=== PATIENT | male | born 1950 | race Caucasian/White ===

== ENCOUNTER 2020-07-31 13:58 | Inpatient (IN) ==
[2020-07-31] MEDS ORDERED: NS 0.9% 1000 ml BAG 1,000 ML IV ONE (13:59)
[2020-07-31] MEDS ORDERED: Ondansetron 4 mg VIAL 2 MG/ML 2 ml VIAL IV ONE ×2 (13:59→19:40)
[2020-07-31] MEDS ORDERED: Iodixanol (CONTRAST) 320 MG/ML 100 ML SDV IV ONE (14:15)
[2020-07-31 14:52] LABS: ABS Basophils 0.1 10^3/ul (0-0.2); ABS Eosinophils 0.1 10^3/ul (0-0.6); ABS Lymphocytes 0.8 10^3/ul (1.0-4.8); ABS Monocytes 0.5 10^3/ul (0-0.8); ABS Neutrophils 8.4 10^3/ul (1.5-7.7); Eosinophil % 0.6 %; Hematocrit 34 % (42-52); Hemoglobin 11.9 g/dL (14.0-18.0); Lymphocyte % 7.7 %; Mean Corpuscular HGB Conc 35 g/dL (31-36); Mean Corpuscular Hemoglobin 30 pg (27-31); Mean Corpuscular Volume 87 fL (80-94); Mean Platelet Volume 6.9 fL (7.4-10.4); Platelet Count 332 10^3/uL (150-450); Red Blood Count 3.95 10^6 /uL (4.18-5.48); Red Cell Distribution Width 13 % (10-15); White Blood Count 9.8 10^3/uL (3.5-10.8)
[2020-07-31 15:00] LABS: Activated Partial Thrombo Time 16.6 seconds (26.0-38.0); INR 1.01 (0.82-1.09)
[2020-07-31 15:11] LABS: Troponin I 0.01 ng/mL (<0.03)
[2020-07-31 15:24] LABS: Albumin 3.5 g/dL (3.2-5.2); Albumin/Globulin Ratio 1.3 (1-3); BUN/Creatinine Ratio 13.1 (8-20); Calcium 8.7 mg/dL (8.6-10.3); EGFR African American 31.7 (>60); EGFR Non-African American 26.2 (>60); Globulin 2.6 g/dL (2-4); HDL Cholesterol 31.9 mg/dL; Potassium 4.6 mmol/L (3.5-5.0); Total Bilirubin 0.3 mg/dL (0.2-1.0); Total Protein 6.1 g/dL (6.4-8.9)
[2020-07-31] MEDS ORDERED: Ondansetron 4 mg VIAL 2 MG/ML 2 ml VIAL IV PRN ×2 (16:10→23:11)
[2020-07-31] MEDS ORDERED: Dextrose 50% Syringe 50 ml 25 GM/50 ML SYRINGE IV PUSH PRN (16:55)
[2020-07-31] MEDS: Enoxaparin 40 MG/0.4 ML SYR SUBCUT SCH (17:00)
[2020-07-31] MEDS ORDERED: Labetalol IV 5 MG/ML 20 ml VIAL IV PUSH ONE (20:06)
[2020-07-31 21:05] LABS: TSH Ultra Thyroid Stim Horm 3.24 mcIU/mL (0.34-5.60)
[2020-08-01] MEDS ORDERED: Piperacillin/Tazobac ADVAN 3.375 GM in NS 0.9% 100 ml BAG 100 ML IV ONE (04:17)
[2020-08-01] MEDS ORDERED: Zosyn per Pharmacy NOTE FOLLOW UP SCH (05:00)
[2020-08-01 05:02] LABS: ABS Lymphocytes 0.4 10^3/ul (1.0-4.8); ABS Monocytes 0.3 10^3/ul (0-0.8); ABS Neutrophils 10.1 10^3/ul (1.5-7.7); Hematocrit 33 % (42-52); Hemoglobin 11.7 g/dL (14.0-18.0); Lymphocyte % 4.1 %; Mean Corpuscular HGB Conc 35 g/dL (31-36); Mean Corpuscular Hemoglobin 30 pg (27-31); Mean Corpuscular Volume 87 fL (80-94); Mean Platelet Volume 6.9 fL (7.4-10.4); Platelet Count 336 10^3/uL (150-450); Red Blood Count 3.84 10^6 /uL (4.18-5.48); Red Cell Distribution Width 13 % (10-15); White Blood Count 10.8 10^3/uL (3.5-10.8)
[2020-08-01] MEDS: NS 0.9% 1000 ml BAG 1,000 ML IV SCH ×2 (05:13→17:28)
[2020-08-01 05:20] LABS: BUN/Creatinine Ratio 11.4 (8-20); Calcium 8.3 mg/dL (8.6-10.3); EGFR African American 29.1 (>60); Potassium 4.5 mmol/L (3.5-5.0)
[2020-08-01 08:35] LABS: Albumin 3.5 g/dL (3.2-5.2); Albumin/Globulin Ratio 1.2 (1-3); C Reactive Protein 5.94 mg/L (<8.01); Total Bilirubin 0.4 mg/dL (0.2-1.0); Total Protein 6.5 g/dL (6.4-8.9)
[2020-08-01] MEDS: DULoxetine DR 60 mg CAP PO SCH (08:52)
[2020-08-01] MEDS: Aspirin EC 81 mg TAB.EC (enteric coated) PO SCH (08:52)
[2020-08-01] MEDS ORDERED: ZOSYN 3.375 GM Q8H per EXTENDED INFUSION IV SCH (09:30)
[2020-08-01] MEDS ORDERED: Rocuronium 50 mg VIAL 10 mg/ml 5 ml VIAL (50 mg) ONE (09:44)
[2020-08-01] MEDS ORDERED: Propofol 10 mg/ml 100 ML BTL 100 ML ONE (09:44)
[2020-08-01 10:25] LABS: ABS Basophils 0.1 10^3/ul (0-0.2); ABS Lymphocytes 0.5 10^3/ul (1.0-4.8); ABS Monocytes 0.4 10^3/ul (0-0.8); ABS Neutrophils 10.2 10^3/ul (1.5-7.7); Hematocrit 33 % (42-52); Hemoglobin 11.2 g/dL (14.0-18.0); Lymphocyte % 4.2 %; Mean Corpuscular HGB Conc 35 g/dL (31-36); Mean Corpuscular Hemoglobin 30 pg (27-31); Mean Corpuscular Volume 87 fL (80-94); Mean Platelet Volume 6.9 fL (7.4-10.4); Platelet Count 316 10^3/uL (150-450); Red Blood Count 3.73 10^6 /uL (4.18-5.48); Red Cell Distribution Width 13 % (10-15); White Blood Count 11.2 10^3/uL (3.5-10.8)
[2020-08-01 10:34] LABS: INR 1.13 (0.82-1.09)
[2020-08-01 10:47] LABS: ALT 16 U/L (7-52); AST 18 U/L (13-39); Albumin 3.4 g/dL (3.2-5.2); Albumin/Globulin Ratio 1.2 (1-3); Alkaline Phosphatase 58 U/L (34-104); Anion Gap 8 mmol/L (2-11); BUN/Creatinine Ratio 11.7 (8-20); Blood Urea Nitrogen 32 mg/dL (6-24); CO2 Carbon Dioxide 24 mmol/L (22-32); Calcium 8.1 mg/dL (8.6-10.3); Chloride 99 mmol/L (101-111); EGFR African American 27.9 (>60); Globulin 2.9 g/dL (2-4); Glucose 332 mg/dL (70-100); Magnesium 1.7 mg/dL (1.9-2.7); Potassium 4.4 mmol/L (3.5-5.0); Sodium 131 mmol/L (135-145); Total Protein 6.3 g/dL (6.4-8.9)
[2020-08-01 10:47] LABS: Urine Appearance Clear; Urine Bilirubin Negative (Negative); Urine Blood 1+ (Negative); Urine Color Yellow; Urine Glucose 3+(>=500 mg/dL) (Negative); Urine Ketones Trace (Negative); Urine Nitrite Negative (Negative); Urine Protein 3+(>=500 mg/dL) (Negative); Urine Specific Gravity 1.024 (1.010-1.030); Urine Urobilinogen Negative (Negative)
[2020-08-01 10:49] LABS: Troponin I 0.05 ng/mL (<0.03)
[2020-08-01 11:00] LABS: Urine Bacteria Absent (Absent); Urine Red Blood Cell Trace(0-2/hpf) (Absent); Urine Squamous Epithelial Cell Present (Absent); Urine White Blood Cell Trace(0-5/hpf) (Absent)
[2020-08-01] MEDS: Insulin GLARGINE 100 un/ml 10 ml VIAL SUBCUT SCH (12:41)
[2020-08-01] MEDS ORDERED: FOSPHENYTOIN IVPB ONE (13:15)
[2020-08-01] MEDS ORDERED: NS 0.9% IVPB ONE (13:15)
[2020-08-01] MEDS ORDERED: Perflutren Lipid Microsphere 3 ML VIAL ONE (13:34)
[2020-08-01] MEDS: Pantoprazole VIAL 40 MG VIAL IV SCH (17:14)
[2020-08-01] MEDS: Acyclovir IV 850 MG in NS 0.9% 250 ml 250 ML IVPB SCH (17:14)
[2020-08-01] MEDS: Enoxaparin 40 MG/0.4 ML SYR SUBCUT SCH (17:14)
[2020-08-01] MEDS ORDERED: Magnesium Sulfate IV 1GM/100ML 1 GM/100 ML BAG IV ONE (18:01)
[2020-08-01 19:59] LABS: Troponin I 0.08 ng/mL (<0.03)
[2020-08-01] MEDS ORDERED: Phenytoin 100 mg ER CAP PO SCH (21:00)
[2020-08-01] MEDS: Fosphenytoin 100 MG in NS 0.9% 50 ML 50 ML IVPB SCH (21:31)
[2020-08-01] MEDS: ZOSYN 3.375 GM Q8H per EXTENDED INFUSION IV SCH (21:31)
[2020-08-02 00:17] LABS: Troponin I 0.08 ng/mL (<0.03)
[2020-08-02] MEDS: Fosphenytoin 100 MG in NS 0.9% 50 ML 50 ML IVPB SCH ×5 (05:27→16:29)
[2020-08-02] MEDS: ZOSYN 3.375 GM Q8H per EXTENDED INFUSION IV SCH ×3 (05:27→16:29)
[2020-08-02 05:58] LABS: ABS Basophils 0.1 10^3/ul (0-0.2); ABS Lymphocytes 1.4 10^3/ul (1.0-4.8); ABS Monocytes 1.3 10^3/ul (0-0.8); ABS Neutrophils 9.6 10^3/ul (1.5-7.7); Hematocrit 32 % (42-52); Lymphocyte % 11.5 %; Mean Corpuscular HGB Conc 34 g/dL (31-36); Mean Corpuscular Hemoglobin 30 pg (27-31); Mean Corpuscular Volume 88 fL (80-94); Mean Platelet Volume 7.1 fL (7.4-10.4); Platelet Count 297 10^3/uL (150-450); Red Blood Count 3.66 10^6 /uL (4.18-5.48); Red Cell Distribution Width 13 % (10-15); White Blood Count 12.4 10^3/uL (3.5-10.8)
[2020-08-02 06:20] LABS: BUN/Creatinine Ratio 11.8 (8-20); Blood Urea Nitrogen 34 mg/dL (6-24); CO2 Carbon Dioxide 23 mmol/L (22-32); Calcium 7.9 mg/dL (8.6-10.3); Chloride 105 mmol/L (101-111); EGFR African American 26.2 (>60); EGFR Non-African American 21.6 (>60); Glucose 149 mg/dL (70-100); Sodium 137 mmol/L (135-145)
[2020-08-02 06:34] LABS: Phenytoin 12.9 mcg/mL (10-20)
[2020-08-02] MEDS: NS 0.9% 1000 ml BAG 1,000 ML IV SCH (07:43)
[2020-08-02 07:49] LABS: Anion Gap 9 mmol/L (2-11)
[2020-08-02] MEDS: Aspirin EC 81 mg TAB.EC (enteric coated) PO SCH (08:13)
[2020-08-02] MEDS: Insulin GLARGINE 100 un/ml 10 ml VIAL SUBCUT SCH (08:13)
[2020-08-02] MEDS: DULoxetine DR 60 mg CAP PO SCH (08:14)
[2020-08-02 08:51] LABS: Urine Appearance Cloudy; Urine Bilirubin Negative (Negative); Urine Blood 3+ (Negative); Urine Color Yellow; Urine Glucose 3+(>=500 mg/dL) (Negative); Urine Ketones Negative (Negative); Urine Nitrite Negative (Negative); Urine Protein 3+(>=500 mg/dL) (Negative); Urine Specific Gravity 1.013 (1.010-1.030); Urine Urobilinogen Negative (Negative)
[2020-08-02 08:55] LABS: Urine Bacteria Absent (Absent); Urine Red Blood Cell 3+(>10/hpf) (Absent); Urine White Blood Cell Trace(0-5/hpf) (Absent)
[2020-08-02] MEDS ORDERED: Cyanocobalamin INJ 1,000 MCG/ML VIAL 1 ML VIAL IM ONE (09:52)
[2020-08-02 16:02] LABS: Body Fluid Source Cerebral Spinal
[2020-08-02] MEDS: Pantoprazole VIAL 40 MG VIAL IV SCH (16:21)
[2020-08-02 16:54] LABS: Body Fluid Mono 25 %
[2020-08-02 17:11] LABS: CSF Glucose 94 mg/dL (40-70)
[2020-08-02] MEDS: Enoxaparin 40 MG/0.4 ML SYR SUBCUT SCH (17:32)
[2020-08-02] MEDS: Acyclovir IV 850 MG in NS 0.9% 250 ml 250 ML IVPB SCH (17:32)
[2020-08-03] MEDS: Fosphenytoin 100 MG in NS 0.9% 50 ML 50 ML IVPB SCH ×3 (00:11→18:43)
[2020-08-03] MEDS: ZOSYN 3.375 GM Q8H per EXTENDED INFUSION IV SCH ×3 (00:33→19:31)
[2020-08-03] MEDS: hydrALAZINE 20 mg/ml 1 ML Vial IV IV SLOW PU PRN ×3 (01:22→15:45)
[2020-08-03] MEDS: NS 0.9% 1000 ml BAG 1,000 ML IV SCH (04:21)
[2020-08-03 04:49] LABS: ABS Basophils 0.1 10^3/ul (0-0.2); ABS Eosinophils 0.1 10^3/ul (0-0.6); ABS Lymphocytes 1.9 10^3/ul (1.0-4.8); ABS Monocytes 0.9 10^3/ul (0-0.8); Eosinophil % 0.9 %; Hematocrit 32 % (42-52); Hemoglobin 10.9 g/dL (14.0-18.0); Lymphocyte % 19.3 %; Mean Corpuscular HGB Conc 35 g/dL (31-36); Mean Corpuscular Hemoglobin 30 pg (27-31); Mean Corpuscular Volume 87 fL (80-94); Mean Platelet Volume 7.1 fL (7.4-10.4); Platelet Count 291 10^3/uL (150-450); Red Blood Count 3.66 10^6 /uL (4.18-5.48); Red Cell Distribution Width 13 % (10-15)
[2020-08-03] MEDS: DULoxetine DR 60 mg CAP PO SCH (09:06)
[2020-08-03] MEDS: Aspirin EC 81 mg TAB.EC (enteric coated) PO SCH (09:06)
[2020-08-03] MEDS: Insulin GLARGINE 100 un/ml 10 ml VIAL SUBCUT SCH (09:24)
[2020-08-03] MEDS ORDERED: Insulin GLARGINE 100 un/ml 10 ml VIAL SUBCUT SCH (10:00)
[2020-08-03 13:43] LABS: BUN/Creatinine Ratio 11.2 (8-20); Calcium 7.8 mg/dL (8.6-10.3); EGFR African American 27.5 (>60); EGFR Non-African American 22.7 (>60); Potassium 3.7 mmol/L (3.5-5.0)
[2020-08-03] MEDS: Pantoprazole VIAL 40 MG VIAL IV SCH (15:25)
[2020-08-03] MEDS: Enoxaparin 40 MG/0.4 ML SYR SUBCUT SCH (19:00)
[2020-08-03] MEDS: Acyclovir IV 850 MG in NS 0.9% 250 ml 250 ML IVPB SCH (19:20)
[2020-08-04] MEDS: Fosphenytoin 100 MG in NS 0.9% 50 ML 50 ML IVPB SCH ×2 (01:07→08:40)
[2020-08-04] MEDS: ZOSYN 3.375 GM Q8H per EXTENDED INFUSION IV SCH ×3 (01:07→18:23)
[2020-08-04] MEDS ORDERED: Dextrose 50% Syringe 50 ml 25 GM/50 ML SYRINGE IV PUSH PRN (07:44)
[2020-08-04] MEDS: Aspirin EC 81 mg TAB.EC (enteric coated) PO SCH (07:54)
[2020-08-04] MEDS: DULoxetine DR 60 mg CAP PO SCH (07:54)
[2020-08-04] MEDS: Insulin GLARGINE 100 un/ml 10 ml VIAL SUBCUT SCH (08:40)
[2020-08-04] MEDS: Pantoprazole VIAL 40 MG VIAL IV SCH (13:29)
[2020-08-04] MEDS: Enoxaparin 40 MG/0.4 ML SYR SUBCUT SCH (17:13)
[2020-08-04] MEDS: Acyclovir IV 850 MG in NS 0.9% 250 ml 250 ML IVPB SCH (17:14)
[2020-08-04] MEDS ORDERED: Phenytoin 100 mg ER CAP PO SCH (21:00)
[2020-08-05] MEDS: ZOSYN 3.375 GM Q8H per EXTENDED INFUSION IV SCH ×3 (01:09→19:22)
[2020-08-05] MEDS: DULoxetine DR 60 mg CAP PO SCH (07:44)
[2020-08-05] MEDS: Aspirin EC 81 mg TAB.EC (enteric coated) PO SCH (07:44)
[2020-08-05] MEDS: Insulin GLARGINE 100 un/ml 10 ml VIAL SUBCUT SCH (07:45)
[2020-08-05 09:10] LABS: Magnesium 1.7 mg/dL (1.9-2.7)
[2020-08-05] MEDS ORDERED: Lactated Ringers 1000 ml BAG 1,000 ML IV SCH ×2 (12:00)
[2020-08-05 12:21] LABS: BUN/Creatinine Ratio 10.5 (8-20); Calcium 7.8 mg/dL (8.6-10.3); EGFR African American 29.9 (>60); EGFR Non-African American 24.7 (>60); Potassium 3.9 mmol/L (3.5-5.0)
[2020-08-05] MEDS: Pantoprazole VIAL 40 MG VIAL IV SCH (12:37)
[2020-08-05] MEDS ORDERED: Phenytoin 100 mg ER CAP PO ONE (14:23)
[2020-08-05] MEDS: HYDROcodone/ACETAMIN 5/325 mg TAB PO PRN ×2 (15:40→21:33)
[2020-08-05] MEDS: Enoxaparin 40 MG/0.4 ML SYR SUBCUT SCH (17:35)
[2020-08-05] MEDS ORDERED: NS 0.9% 1000 ml BAG 1,000 ML IV SCH (17:45)
[2020-08-05] MEDS: Acyclovir IV 850 MG in NS 0.9% 250 ml 250 ML IVPB SCH (17:48)
[2020-08-05] MEDS: Phenytoin 100 mg ER CAP PO SCH (21:33)
[2020-08-06] MEDS: ZOSYN 3.375 GM Q8H per EXTENDED INFUSION IV SCH ×2 (01:30→08:39)
[2020-08-06] MEDS: Aspirin EC 81 mg TAB.EC (enteric coated) PO SCH (08:19)
[2020-08-06] MEDS: DULoxetine DR 60 mg CAP PO SCH (08:19)
[2020-08-06] MEDS: Phenytoin 100 mg ER CAP PO SCH (08:20)
[2020-08-06] MEDS: Insulin GLARGINE 100 un/ml 10 ml VIAL SUBCUT SCH (08:24)
[2020-08-06 12:11] VITALS: BP 164/83
[2020-08-06 21:22] LABS: HSV 1 PCR, CSF Negative (Negative); HSV 2 PCR, CSF Negative (Negative)
[2020-08-07 01:36] LABS: CMV Rapid PCR Negative (Negative)
[2020-08-07 01:38] LABS: Varicella Zoster Result Negative (Negative); Varicella Zoster Source CSF
== END 2020-08-06 11:40 | DRG 64 ==
LOC: ED 13:58 → MERGE 16:10 → MEDTELE 16:10 → ICU 08-01 09:54 → MEDTELE 08-03 17:28
PROVIDERS: ADMIT Internal Medicine; ATTEND Internal Medicine

== ENCOUNTER 2020-08-06 08:01 | Inpatient (IN) ==
[2020-08-06] MEDS ORDERED: Magnesium Hydroxide LIQ 30 ML UDC PO PRN (13:32)
[2020-08-06] MEDS ORDERED: Senna TAB 8.6 mg TAB PO PRN (13:32)
[2020-08-06] MEDS: Enoxaparin 40 MG/0.4 ML SYR SUBCUT SCH (16:17)
[2020-08-06] MEDS ORDERED: Dextrose 50% Syringe 50 ml 25 GM/50 ML SYRINGE IV PUSH PRN (17:40)
[2020-08-06] MEDS ORDERED: Acyclovir IV 850 MG in NS 0.9% 250 ml 250 ML IVPB SCH (18:00)
[2020-08-06] MEDS: Phenytoin 100 mg ER CAP PO SCH (20:29)
[2020-08-06] MEDS: Acyclovir IV 850 MG in NS 0.9% 250 ml 250 ML IVPB SCH (21:13)
[2020-08-06] MEDS: HYDROcodone/ACETAMIN 5/325 mg TAB PO PRN (21:22)
[2020-08-07 05:37] LABS: ABS Basophils 0.1 10^3/ul (0-0.2); ABS Eosinophils 0.4 10^3/ul (0-0.6); ABS Lymphocytes 1.4 10^3/ul (1.0-4.8); ABS Monocytes 0.7 10^3/ul (0-0.8); ABS Neutrophils 6.4 10^3/ul (1.5-7.7); Eosinophil % 4.2 %; Hematocrit 31 % (42-52); Hemoglobin 10.8 g/dL (14.0-18.0); Lymphocyte % 15.7 %; Mean Corpuscular HGB Conc 35 g/dL (31-36); Mean Corpuscular Hemoglobin 30 pg (27-31); Mean Corpuscular Volume 87 fL (80-94); Mean Platelet Volume 6.7 fL (7.4-10.4); Platelet Count 322 10^3/uL (150-450); Red Blood Count 3.57 10^6 /uL (4.18-5.48); Red Cell Distribution Width 13 % (10-15); White Blood Count 8.9 10^3/uL (3.5-10.8)
[2020-08-07 05:55] LABS: Albumin 3.1 g/dL (3.2-5.2); Albumin/Globulin Ratio 1.2 (1-3); BUN/Creatinine Ratio 12.8 (8-20); Calcium 8.3 mg/dL (8.6-10.3); EGFR African American 36.1 (>60); EGFR Non-African American 29.8 (>60); Globulin 2.6 g/dL (2-4); Total Bilirubin 0.2 mg/dL (0.2-1.0); Total Protein 5.7 g/dL (6.4-8.9)
[2020-08-07] MEDS: Insulin GLARGINE 100 un/ml 10 ml VIAL SUBCUT SCH (09:10)
[2020-08-07] MEDS: HYDROcodone/ACETAMIN 5/325 mg TAB PO PRN ×2 (10:05→14:00)
[2020-08-07] MEDS: Aspirin EC 81 mg TAB.EC (enteric coated) PO SCH (10:55)
[2020-08-07] MEDS: DULoxetine DR 60 mg CAP PO SCH (10:56)
[2020-08-07] MEDS: Phenytoin 100 mg ER CAP PO SCH ×2 (10:58→20:13)
[2020-08-07] MEDS: Enoxaparin 40 MG/0.4 ML SYR SUBCUT SCH (16:59)
[2020-08-07] MEDS: Acyclovir IV 850 MG in NS 0.9% 250 ml 250 ML IVPB SCH (17:39)
[2020-08-08] MEDS: Phenytoin 100 mg ER CAP PO SCH ×2 (07:40→20:06)
[2020-08-08] MEDS: DULoxetine DR 60 mg CAP PO SCH (07:41)
[2020-08-08] MEDS: Aspirin EC 81 mg TAB.EC (enteric coated) PO SCH (07:41)
[2020-08-08] MEDS: Insulin GLARGINE 100 un/ml 10 ml VIAL SUBCUT SCH (07:47)
[2020-08-08] MEDS: HYDROcodone/ACETAMIN 5/325 mg TAB PO PRN ×3 (07:48→23:22)
[2020-08-08] MEDS ORDERED: Influenza VAC *QUAD* 2020-21* 0.5 ML SYRINGE IM ONE (09:00)
[2020-08-08] MEDS: Enoxaparin 40 MG/0.4 ML SYR SUBCUT SCH (17:40)
[2020-08-09] MEDS: HYDROcodone/ACETAMIN 5/325 mg TAB PO PRN ×2 (05:56→11:02)
[2020-08-09 06:37] VITALS: BP 155/64
[2020-08-09] MEDS: Aspirin EC 81 mg TAB.EC (enteric coated) PO SCH (07:37)
[2020-08-09] MEDS: Phenytoin 100 mg ER CAP PO SCH (07:37)
[2020-08-09] MEDS: DULoxetine DR 60 mg CAP PO SCH (07:38)
[2020-08-09] MEDS ORDERED: Insulin GLARGINE 100 un/ml 10 ml VIAL SUBCUT SCH (09:00)
== END 2020-08-09 13:15 | disposition home or self-care (01) | DRG 57 ==
LOC: PMRU 12:58
PROVIDERS: ADMIT Physical Medicine & Rehabilitation; ATTEND Physical Medicine & Rehabilitation

== ENCOUNTER 2021-03-28 13:59 | Inpatient (IN) ==
[2021-03-28 15:43] LABS: ABS Eosinophils 0.2 10^3/ul (0-0.6); ABS Lymphocytes 1.1 10^3/ul (1.0-4.8); ABS Monocytes 0.6 10^3/ul (0-0.8); ABS Neutrophils 4.6 10^3/ul (1.5-7.7); Hematocrit 34 % (42-52); Lymphocyte % 16.8 %; Mean Corpuscular HGB Conc 35 g/dL (31-36); Mean Corpuscular Hemoglobin 31 pg (27-31); Mean Corpuscular Volume 87 fL (80-94); Mean Platelet Volume 6.9 fL (7.4-10.4); Platelet Count 267 10^3/uL (150-450); Red Blood Count 3.92 10^6 /uL (4.18-5.48); Red Cell Distribution Width 13 % (10-15); White Blood Count 6.7 10^3/uL (3.5-10.8)
[2021-03-28 15:55] LABS: Troponin I 0.01 ng/mL (<0.03)
[2021-03-28 15:56] LABS: Rapid COVID-19 Molecular Undetected (Undetected)
[2021-03-28 16:04] LABS: Albumin 3.6 g/dL (3.2-5.2); Albumin/Globulin Ratio 1.2 (1-3); Calcium 8.9 mg/dL (8.6-10.3); EGFR African American 20.9 (>60); EGFR Non-African American 17.2 (>60); Globulin 2.9 g/dL (2-4); Potassium 4.3 mmol/L (3.5-5.0); Total Bilirubin 0.3 mg/dL (0.2-1.0); Total Protein 6.5 g/dL (6.4-8.9)
[2021-03-28] MEDS ORDERED: NS 0.9% 1000 ml BAG 1,000 ML IV SCH (17:00)
[2021-03-28 17:36] LABS: Urine Appearance Clear; Urine Bilirubin Negative (Negative); Urine Blood 1+ (Negative); Urine Color Yellow; Urine Glucose 3+(>=500 mg/dL) (Negative); Urine Ketones Negative (Negative); Urine Nitrite Negative (Negative); Urine Protein 3+(>=500 mg/dL) (Negative); Urine Specific Gravity 1.015 (1.002-1.030); Urine Urobilinogen Negative (Negative)
[2021-03-28 17:49] LABS: Urine Bacteria Absent (Absent); Urine Red Blood Cell Trace(0-2/hpf) (Absent); Urine White Blood Cell Absent (Absent)
[2021-03-28] MEDS ORDERED: levETIRAcetam 1000MG IVPREMIX 1,000 MG/100 ML BAG IVPB ONE (18:15)
[2021-03-28] MEDS ORDERED: Ondansetron 4 mg VIAL 2 MG/ML 2 ml VIAL IV ONE ×2 (18:16→19:22)
[2021-03-28] MEDS ORDERED: Prochlorperazine 5 mg/ml 2 ml VIAL (10 mg) IV PRN (19:57)
[2021-03-28] MEDS ORDERED: hydrALAZINE 20 mg/ml 1 ML Vial IV IV SLOW PU PRN (22:05)
[2021-03-28] MEDS ORDERED: Dextrose 50% Syringe 50 ml 25 GM/50 ML SYRINGE IV PUSH PRN (22:18)
[2021-03-28 22:50] LABS: C Reactive Protein 6.05 mg/L (<8.01)
[2021-03-28 22:55] LABS: Rapid COVID-19 Molecular Undetected (Undetected)
[2021-03-28] MEDS: Metoprolol Tartrate 5 mg VIAL 5 ml VIAL (1 mg/ml) IV SCH (23:27)
[2021-03-29] MEDS: Ondansetron 4 mg VIAL 2 MG/ML 2 ml VIAL IV PRN ×2 (00:53→10:09)
[2021-03-29 02:21] LABS: Troponin I 0.03 ng/mL (<0.03)
[2021-03-29] MEDS: NS 0.9% 1000 ml BAG 1,000 ML IV SCH (02:51)
[2021-03-29] MEDS: Metoprolol Tartrate 5 mg VIAL 5 ml VIAL (1 mg/ml) IV SCH ×2 (04:42→12:10)
[2021-03-29] MEDS ORDERED: Vancomycin 1,500 MG in NS 0.9% 250 ml 250 ML IVPB ONE ×2 (05:00→07:00)
[2021-03-29] MEDS ORDERED: Vancomycin per Pharmacy 1 EA NOTE FOLLOW UP SCH (05:00)
[2021-03-29] MEDS: cefTRIAXone 2 GM ADDV.VIAL 2 GM in NS 0.9% 100 ml BAG 100 ML IV SCH ×2 (05:43→23:13)
[2021-03-29 05:47] LABS: ABS Basophils 0.1 10^3/ul (0-0.2); ABS Lymphocytes 1.3 10^3/ul (1.0-4.8); ABS Monocytes 0.7 10^3/ul (0-0.8); Eosinophil % 0.2 %; Hematocrit 32 % (42-52); Hemoglobin 11.1 g/dL (14.0-18.0); Lymphocyte % 16.3 %; Mean Corpuscular HGB Conc 35 g/dL (31-36); Mean Corpuscular Hemoglobin 31 pg (27-31); Mean Corpuscular Volume 87 fL (80-94); Mean Platelet Volume 6.8 fL (7.4-10.4); Platelet Count 283 10^3/uL (150-450); Red Blood Count 3.62 10^6 /uL (4.18-5.48); Red Cell Distribution Width 13 % (10-15)
[2021-03-29 06:07] LABS: Calcium 8.1 mg/dL (8.6-10.3); EGFR African American 20.1 (>60); EGFR Non-African American 16.6 (>60); Potassium 4.4 mmol/L (3.5-5.0)
[2021-03-29] MEDS: Ampicillin ADVAN 2 GM in NS 0.9% 100 ml BAG 100 ML IVPB SCH ×2 (06:56→16:40)
[2021-03-29] MEDS ORDERED: Insulin GLARGINE 100 un/ml 10 ml VIAL SUBCUT SCH ×2 (09:00→23:00)
[2021-03-29] MEDS ORDERED: levETIRAcetam 1000MG IVPREMIX 1,000 MG/100 ML BAG IVPB ONE (09:00)
[2021-03-29 10:59] LABS: Troponin I 0.03 ng/mL (<0.03)
[2021-03-29] MEDS: Valproic Acid IV 500 MG in NS 0.9% 100 ml BAG 100 ML IVPB SCH ×2 (12:38→21:25)
[2021-03-29] MEDS: Aspirin EC 81 mg TAB.EC (enteric coated) PO SCH (18:22)
[2021-03-29 22:32] LABS: Glucose Confirmatory 375 mg/dL (70-100)
[2021-03-29 23:08] LABS: Creatine Kinase 140 U/L (10-223)
[2021-03-29] MEDS: Insulin GLARGINE 100 un/ml 10 ml VIAL SUBCUT SCH (23:19)
[2021-03-29] MEDS: Heparin 5000 UNITS/ML 1 mL VIAL SUBCUT SCH (23:23)
[2021-03-30] MEDS: Ampicillin ADVAN 2 GM in NS 0.9% 100 ml BAG 100 ML IVPB SCH ×2 (00:34→05:29)
[2021-03-30 03:28] LABS: Calcium 8.2 mg/dL (8.6-10.3); EGFR African American 22.9 (>60); EGFR Non-African American 18.9 (>60); Potassium 3.8 mmol/L (3.5-5.0)
[2021-03-30] MEDS: Valproic Acid IV 500 MG in NS 0.9% 100 ml BAG 100 ML IVPB SCH ×2 (04:12→13:23)
[2021-03-30 04:26] LABS: ABS Eosinophils 0.2 10^3/ul (0-0.6); ABS Lymphocytes 1.8 10^3/ul (1.0-4.8); ABS Monocytes 0.7 10^3/ul (0-0.8); ABS Neutrophils 3.7 10^3/ul (1.5-7.7); Eosinophil % 3.5 %; Hematocrit 31 % (42-52); Hemoglobin 10.7 g/dL (14.0-18.0); Lymphocyte % 28.1 %; Mean Corpuscular HGB Conc 34 g/dL (31-36); Mean Corpuscular Hemoglobin 30 pg (27-31); Mean Corpuscular Volume 88 fL (80-94); Mean Platelet Volume 6.5 fL (7.4-10.4); Platelet Count 244 10^3/uL (150-450); Red Blood Count 3.55 10^6 /uL (4.18-5.48); Red Cell Distribution Width 13 % (10-15); White Blood Count 6.6 10^3/uL (3.5-10.8)
[2021-03-30 04:31] LABS: INR 1.07 (0.86-1.15)
[2021-03-30 04:41] LABS: Calcium 8.1 mg/dL (8.6-10.3); Magnesium 1.8 mg/dL (1.9-2.7); Phosphorus 3.4 mg/dL (2.5-5.0)
[2021-03-30] MEDS: Heparin 5000 UNITS/ML 1 mL VIAL SUBCUT SCH ×3 (05:30→20:38)
[2021-03-30] MEDS ORDERED: Vancomycin Random Level NOTE FOLLOW UP ONE (06:00)
[2021-03-30] MEDS ORDERED: Magnesium Sulfate 2 gm BAG 2 GM/50 ML BAG IVPB ONE (07:48)
[2021-03-30] MEDS: NS 0.9% 1000 ml BAG 1,000 ML IV SCH (08:42)
[2021-03-30] MEDS: DULoxetine DR 60 mg CAP PO SCH (08:43)
[2021-03-30] MEDS: Aspirin EC 81 mg TAB.EC (enteric coated) PO SCH (08:43)
[2021-03-30] MEDS: Cholecalciferol (VIT D3) 1,000 unit TAB PO SCH (08:43)
[2021-03-30] MEDS: cefTRIAXone 2 GM ADDV.VIAL 2 GM in NS 0.9% 100 ml BAG 100 ML IV SCH (10:15)
[2021-03-30 11:58] LABS: Urine Creatinine Concentration 67.43 mg/dL; Urine Potassium Concentration 22.8 mmol/L
[2021-03-30] MEDS: Metoprolol Tartrate 5 mg VIAL 5 ml VIAL (1 mg/ml) IV SCH (15:51)
[2021-03-30] MEDS ORDERED: Dextrose 50% Syringe 50 ml 25 GM/50 ML SYRINGE IV PUSH PRN (15:59)
[2021-03-30] MEDS: Insulin GLARGINE 100 un/ml 10 ml VIAL SUBCUT SCH (20:37)
[2021-03-31 05:18] LABS: ABS Basophils 0.1 10^3/ul (0-0.2); ABS Eosinophils 0.3 10^3/ul (0-0.6); ABS Lymphocytes 1.5 10^3/ul (1.0-4.8); ABS Monocytes 0.5 10^3/ul (0-0.8); ABS Neutrophils 3.5 10^3/ul (1.5-7.7); Eosinophil % 5.1 %; Hematocrit 31 % (42-52); Hemoglobin 10.9 g/dL (14.0-18.0); Lymphocyte % 25.1 %; Mean Corpuscular HGB Conc 35 g/dL (31-36); Mean Corpuscular Hemoglobin 31 pg (27-31); Mean Corpuscular Volume 88 fL (80-94); Mean Platelet Volume 7.2 fL (7.4-10.4); Platelet Count 228 10^3/uL (150-450); Red Blood Count 3.55 10^6 /uL (4.18-5.48); Red Cell Distribution Width 13 % (10-15); White Blood Count 5.9 10^3/uL (3.5-10.8)
[2021-03-31 05:33] LABS: Albumin 3.2 g/dL (3.2-5.2); Albumin/Globulin Ratio 1.3 (1-3); Calcium 8.3 mg/dL (8.6-10.3); EGFR African American 25.3 (>60); EGFR Non-African American 20.9 (>60); Globulin 2.4 g/dL (2-4); Potassium 3.8 mmol/L (3.5-5.0); Total Bilirubin 0.3 mg/dL (0.2-1.0); Total Protein 5.6 g/dL (6.4-8.9)
[2021-03-31] MEDS: Heparin 5000 UNITS/ML 1 mL VIAL SUBCUT SCH ×3 (06:49→21:13)
[2021-03-31] MEDS: Aspirin EC 81 mg TAB.EC (enteric coated) PO SCH (08:40)
[2021-03-31] MEDS: DULoxetine DR 60 mg CAP PO SCH (08:41)
[2021-03-31] MEDS: Cholecalciferol (VIT D3) 1,000 unit TAB PO SCH (08:41)
[2021-03-31 17:27] LABS: Glucose Confirmatory 461 mg/dL (70-100)
[2021-03-31] MEDS: Insulin GLARGINE 100 un/ml 10 ml VIAL SUBCUT SCH (21:13)
[2021-04-01] MEDS: Heparin 5000 UNITS/ML 1 mL VIAL SUBCUT SCH ×3 (05:09→22:17)
[2021-04-01 07:14] LABS: Calcium 8.4 mg/dL (8.6-10.3); EGFR African American 25.2 (>60); EGFR Non-African American 20.8 (>60); Potassium 4.1 mmol/L (3.5-5.0)
[2021-04-01 08:22] LABS: Magnesium 2.1 mg/dL (1.9-2.7)
[2021-04-01] MEDS: DULoxetine DR 60 mg CAP PO SCH (10:12)
[2021-04-01] MEDS: Cholecalciferol (VIT D3) 1,000 unit TAB PO SCH (10:12)
[2021-04-01] MEDS: Aspirin EC 81 mg TAB.EC (enteric coated) PO SCH (10:12)
[2021-04-01] MEDS: Insulin GLARGINE 100 un/ml 10 ml VIAL SUBCUT SCH (22:19)
[2021-04-02] MEDS: Heparin 5000 UNITS/ML 1 mL VIAL SUBCUT SCH ×3 (04:54→20:22)
[2021-04-02 07:48] LABS: Calcium 8.4 mg/dL (8.6-10.3); EGFR African American 24.1 (>60); EGFR Non-African American 19.9 (>60); Potassium 4.2 mmol/L (3.5-5.0)
[2021-04-02] MEDS: Cholecalciferol (VIT D3) 1,000 unit TAB PO SCH (09:30)
[2021-04-02] MEDS: DULoxetine DR 60 mg CAP PO SCH (09:31)
[2021-04-02] MEDS: Aspirin EC 81 mg TAB.EC (enteric coated) PO SCH (09:31)
[2021-04-02] MEDS ORDERED: NS 0.9% 1000 ml BAG 1,000 ML IV ONE (12:43)
[2021-04-02] MEDS ORDERED: Insulin GLARGINE 100 un/ml 10 ml VIAL SUBCUT SCH (21:00)
[2021-04-03] MEDS: Heparin 5000 UNITS/ML 1 mL VIAL SUBCUT SCH (05:45)
[2021-04-03 06:13] LABS: Calcium 8.4 mg/dL (8.6-10.3); EGFR Non-African American 22.3 (>60); Magnesium 1.8 mg/dL (1.9-2.7); Phosphorus 3.4 mg/dL (2.5-5.0); Potassium 4.3 mmol/L (3.5-5.0)
[2021-04-03] MEDS ORDERED: Magnesium Sulfate IV 3 GM in NS 0.9% 100 ml BAG 100 ML IVPB ONE (07:30)
[2021-04-03] MEDS: Aspirin EC 81 mg TAB.EC (enteric coated) PO SCH (08:45)
[2021-04-03] MEDS: Cholecalciferol (VIT D3) 1,000 unit TAB PO SCH (08:46)
[2021-04-03] MEDS: DULoxetine DR 60 mg CAP PO SCH (08:47)
[2021-04-03 17:04] VITALS: BP 138/53
== END 2021-04-03 17:09 | disposition home or self-care (01) | DRG 101 ==
LOC: ED 13:59 → MEDTELE 22:07 → SUATTDRO 22:07 → MEDTELE 03-29 04:59
PROVIDERS: ADMIT Hospitalist; ATTEND Internal Medicine

== ENCOUNTER 2021-07-01 07:48 | Inpatient (IN) ==
[2021-07-01] MEDS ORDERED: Lactated Ringers 1000 ml BAG 1,000 ML IV ONE ×2 (08:05→11:55)
[2021-07-01] MEDS ORDERED: Ondansetron 4 mg VIAL 2 MG/ML 2 ml VIAL IV ONE (08:06)
[2021-07-01 08:30] LABS: ABS Basophils 0.1 10^3/ul (0-0.2); ABS Eosinophils 0.3 10^3/ul (0-0.6); ABS Lymphocytes 1.1 10^3/ul (1.0-4.8); ABS Monocytes 0.7 10^3/ul (0-0.8); Eosinophil % 3.6 %; Hematocrit 32 % (42-52); Lymphocyte % 15.8 %; Mean Corpuscular HGB Conc 34 g/dL (31-36); Mean Corpuscular Hemoglobin 32 pg (27-31); Mean Corpuscular Volume 93 fL (80-94); Mean Platelet Volume 6.7 fL (7.4-10.4); Platelet Count 211 10^3/uL (150-450); Red Blood Count 3.47 10^6 /uL (4.18-5.48); Red Cell Distribution Width 14 % (10-15); White Blood Count 7.1 10^3/uL (3.5-10.8)
[2021-07-01 08:52] LABS: Calcium 8.4 mg/dL (8.6-10.3); Magnesium 2.2 mg/dL (1.9-2.7); Total Protein 5.6 g/dL (6.4-8.9); eGFR CKD-EPI 16.2 (>60)
[2021-07-01 08:53] LABS: Albumin/Globulin Ratio 1.2 (1-3); C Reactive Protein 2.03 mg/L (<8.01); Globulin 2.6 g/dL (2-4); Potassium 5.3 mmol/L (3.5-5.0); Total Bilirubin 0.4 mg/dL (0.2-1.0)
[2021-07-01 10:12] LABS: Urine Appearance Cloudy; Urine Bilirubin Negative (Negative); Urine Blood Negative (Negative); Urine Color Yellow; Urine Glucose 2+(150 mg/dL) (Negative); Urine Ketones Negative (Negative); Urine Nitrite Negative (Negative); Urine Protein 3+(>=500 mg/dL) (Negative); Urine Specific Gravity 1.017 (1.002-1.030); Urine Urobilinogen Negative (Negative)
[2021-07-01 10:13] LABS: TSH Ultra Thyroid Stim Horm 1.36 mcIU/mL (0.34-5.60)
[2021-07-01 10:44] LABS: Urine Bacteria Absent (Absent); Urine Granular Casts Present (Absent); Urine Red Blood Cell Absent (Absent); Urine Squamous Epithelial Cell Present (Absent); Urine White Blood Cell Trace(0-5/hpf) (Absent)
[2021-07-01] MEDS ORDERED: SODIUM ZIRCONIUM CYCLOSILICATE 10 GM PACKET PO ONE (16:20)
[2021-07-01 16:52] LABS: Rapid COVID-19 Molecular Undetected (Undetected)
[2021-07-01] MEDS ORDERED: Dextrose 50% Syringe 50 ml 25 GM/50 ML SYRINGE IV PUSH PRN (17:48)
[2021-07-01] MEDS: NS 0.9% 1000 ml BAG 1,000 ML IV SCH (18:14)
[2021-07-01] MEDS ORDERED: Insulin GLARGINE 100 un/ml 10 ml VIAL SUBCUT SCH (21:00)
[2021-07-01] MEDS: Heparin 5000 UNITS/ML 1 mL VIAL SUBCUT SCH (21:13)
[2021-07-01 22:36] LABS: Calcium 8.2 mg/dL (8.6-10.3); eGFR CKD-EPI 18.5 (>60)
[2021-07-01] MEDS: ICOSAPENT ETHYL 1 GM CAPSULE (NF) PO SCH (23:50)
[2021-07-02] MEDS: NS 0.9% 1000 ml BAG 1,000 ML IV SCH ×2 (05:48→20:12)
[2021-07-02 06:39] LABS: ABS Eosinophils 0.3 10^3/ul (0-0.6); ABS Lymphocytes 1.7 10^3/ul (1.0-4.8); ABS Monocytes 0.5 10^3/ul (0-0.8); ABS Neutrophils 2.6 10^3/ul (1.5-7.7); Eosinophil % 4.9 %; Hematocrit 27 % (42-52); Hemoglobin 9.1 g/dL (14.0-18.0); Lymphocyte % 33.1 %; Mean Corpuscular HGB Conc 34 g/dL (31-36); Mean Corpuscular Hemoglobin 32 pg (27-31); Mean Corpuscular Volume 93 fL (80-94); Mean Platelet Volume 7.2 fL (7.4-10.4); Nucleated Red Blood Cells % 0.1; Platelet Count 144 10^3/uL (150-450); Red Blood Count 2.85 10^6 /uL (4.18-5.48); Red Cell Distribution Width 15 % (10-15); White Blood Count 5.1 10^3/uL (3.5-10.8)
[2021-07-02 06:54] LABS: Potassium 4.7 mmol/L (3.5-5.0)
[2021-07-02 06:55] LABS: Calcium 7.9 mg/dL (8.6-10.3); eGFR CKD-EPI 19.1 (>60)
[2021-07-02] MEDS ORDERED: cloNIDine 0.3 MG PATCH 0.3 MG/24 HR 7 DAY PATCH TRANSDERM SCH (09:00)
[2021-07-02] MEDS: Heparin 5000 UNITS/ML 1 mL VIAL SUBCUT SCH ×2 (10:14→21:12)
[2021-07-02] MEDS: Aspirin EC 81 mg TAB.EC (enteric coated) PO SCH (10:18)
[2021-07-02] MEDS: DULoxetine DR 60 mg CAP PO SCH (10:19)
[2021-07-02] MEDS: ICOSAPENT ETHYL 1 GM CAPSULE (NF) PO SCH (10:33)
[2021-07-02] MEDS: Insulin GLARGINE 100 un/ml 10 ml VIAL SUBCUT SCH (21:12)
[2021-07-02] MEDS: PTO:ICOSAPENT ETHYL 1 GM CAPSULE (NF) PO SCH (21:14)
[2021-07-03 05:17] LABS: ABS Basophils 0.1 10^3/ul (0-0.2); ABS Eosinophils 0.2 10^3/ul (0-0.6); ABS Monocytes 0.5 10^3/ul (0-0.8); ABS Neutrophils 2.9 10^3/ul (1.5-7.7); Hematocrit 28 % (42-52); Hemoglobin 9.5 g/dL (14.0-18.0); Mean Corpuscular HGB Conc 34 g/dL (31-36); Mean Corpuscular Hemoglobin 31 pg (27-31); Mean Corpuscular Volume 93 fL (80-94); Mean Platelet Volume 6.8 fL (7.4-10.4); Platelet Count 142 10^3/uL (150-450); Red Blood Count 3.05 10^6 /uL (4.18-5.48); Red Cell Distribution Width 14 % (10-15); White Blood Count 4.6 10^3/uL (3.5-10.8)
[2021-07-03 05:38] LABS: Calcium 7.8 mg/dL (8.6-10.3); Potassium 4.4 mmol/L (3.5-5.0); eGFR CKD-EPI 19.6 (>60)
[2021-07-03] MEDS: NS 0.9% 1000 ml BAG 1,000 ML IV SCH ×2 (06:57→21:54)
[2021-07-03] MEDS: PTO:ICOSAPENT ETHYL 1 GM CAPSULE (NF) PO SCH ×2 (08:41→17:46)
[2021-07-03] MEDS: Heparin 5000 UNITS/ML 1 mL VIAL SUBCUT SCH ×2 (09:12→21:55)
[2021-07-03] MEDS: Aspirin EC 81 mg TAB.EC (enteric coated) PO SCH (09:15)
[2021-07-03] MEDS: DULoxetine DR 60 mg CAP PO SCH (09:16)
[2021-07-03] MEDS ORDERED: Polyethylene Glycol 3350 17 GM PACKET PO PRN (09:55)
[2021-07-03] MEDS ORDERED: Magnesium Hydroxide LIQ 30 ML UDC PO ONE (10:19)
[2021-07-03 12:29] LABS: Ferritin 627.8 ng/mL (24-336)
[2021-07-03] MEDS: Insulin GLARGINE 100 un/ml 10 ml VIAL SUBCUT SCH (21:55)
[2021-07-04 04:49] LABS: ABS Eosinophils 0.2 10^3/ul (0-0.6); ABS Lymphocytes 1.6 10^3/ul (1.0-4.8); ABS Monocytes 0.4 10^3/ul (0-0.8); ABS Neutrophils 2.1 10^3/ul (1.5-7.7); Eosinophil % 4.5 %; Hematocrit 24 % (42-52); Hemoglobin 8.2 g/dL (14.0-18.0); Lymphocyte % 37.7 %; Mean Corpuscular HGB Conc 34 g/dL (31-36); Mean Corpuscular Hemoglobin 31 pg (27-31); Mean Corpuscular Volume 93 fL (80-94); Platelet Count 136 10^3/uL (150-450); Red Blood Count 2.62 10^6 /uL (4.18-5.48); Red Cell Distribution Width 15 % (10-15); White Blood Count 4.4 10^3/uL (3.5-10.8)
[2021-07-04 05:11] LABS: Calcium 7.5 mg/dL (8.6-10.3); Potassium 4.9 mmol/L (3.5-5.0); eGFR CKD-EPI 21.4 (>60)
[2021-07-04] MEDS: DULoxetine DR 60 mg CAP PO SCH (07:55)
[2021-07-04] MEDS: Aspirin EC 81 mg TAB.EC (enteric coated) PO SCH (07:55)
[2021-07-04] MEDS: PTO:ICOSAPENT ETHYL 1 GM CAPSULE (NF) PO SCH ×2 (07:56→17:21)
[2021-07-04] MEDS: Heparin 5000 UNITS/ML 1 mL VIAL SUBCUT SCH ×2 (08:00→20:50)
[2021-07-04] MEDS ORDERED: Magnesium Hydroxide LIQ 30 ML UDC PO PRN (08:49)
[2021-07-04 15:07] LABS: % Iron Saturation 58 % (14 - 50); Total Iron Binding Capacity 276 mcg/dL (250 - 400)
[2021-07-04 15:18] LABS: Hematocrit 27 % (42-52); Hemoglobin 9.2 g/dL (14.0-18.0)
[2021-07-04] MEDS: Insulin GLARGINE 100 un/ml 10 ml VIAL SUBCUT SCH (20:50)
[2021-07-05 09:08] LABS: Hematocrit 26 % (42-52); Hemoglobin 8.8 g/dL (14.0-18.0)
[2021-07-05] MEDS: Heparin 5000 UNITS/ML 1 mL VIAL SUBCUT SCH ×2 (10:13→21:49)
[2021-07-05] MEDS: PTO:ICOSAPENT ETHYL 1 GM CAPSULE (NF) PO SCH ×2 (10:13→17:34)
[2021-07-05] MEDS: DULoxetine DR 60 mg CAP PO SCH (10:14)
[2021-07-05] MEDS: Aspirin EC 81 mg TAB.EC (enteric coated) PO SCH (10:14)
[2021-07-05] MEDS: Insulin GLARGINE 100 un/ml 10 ml VIAL SUBCUT SCH (21:48)
[2021-07-06 05:27] LABS: Hematocrit 25 % (42-52); Hemoglobin 8.6 g/dL (14.0-18.0)
[2021-07-06] MEDS: PTO:ICOSAPENT ETHYL 1 GM CAPSULE (NF) PO SCH ×2 (10:02→17:09)
[2021-07-06] MEDS: Heparin 5000 UNITS/ML 1 mL VIAL SUBCUT SCH ×2 (10:03→20:18)
[2021-07-06] MEDS: DULoxetine DR 60 mg CAP PO SCH (10:03)
[2021-07-06] MEDS: Aspirin EC 81 mg TAB.EC (enteric coated) PO SCH (10:04)
[2021-07-06 18:35] LABS: Rapid COVID-19 Molecular Undetected (Undetected)
[2021-07-06] MEDS: Insulin GLARGINE 100 un/ml 10 ml VIAL SUBCUT SCH (20:18)
[2021-07-07] MEDS ORDERED: Magnesium Hydroxide LIQ 30 ML UDC PO PRN (07:57)
[2021-07-07] MEDS: PTO:ICOSAPENT ETHYL 1 GM CAPSULE (NF) PO SCH (10:48)
[2021-07-07] MEDS: DULoxetine DR 60 mg CAP PO SCH (10:49)
[2021-07-07] MEDS: Aspirin EC 81 mg TAB.EC (enteric coated) PO SCH (10:49)
[2021-07-07] MEDS: Heparin 5000 UNITS/ML 1 mL VIAL SUBCUT SCH (10:50)
[2021-07-07] MEDS ORDERED: Ondansetron ODT 4 mg TAB 4 MG TAB SL PRN (13:15)
[2021-07-07 13:53] VITALS: BP 146/63
== END 2021-07-07 13:50 | DRG 640 ==
LOC: EDHOLD 07:48 → ED 07:48 → SUATTDRO 16:43 → MED 20:25 → SUATTDRO 07-03 13:29
PROVIDERS: ADMIT Internal Medicine; ATTEND Internal Medicine

== ENCOUNTER 2021-09-09 13:52 | Inpatient (IN) ==
[2021-09-09 15:14] LABS: ABS Eosinophils 0.1 10^3/ul (0-0.6); ABS Lymphocytes 1.1 10^3/ul (1.0-4.8); ABS Monocytes 0.9 10^3/ul (0-0.8); ABS Neutrophils 9.3 10^3/ul (1.5-7.7); Eosinophil % 0.7 %; Hematocrit 34 % (42-52); Hemoglobin 11.8 g/dL (14.0-18.0); Lymphocyte % 9.8 %; Mean Corpuscular HGB Conc 35 g/dL (31-36); Mean Corpuscular Hemoglobin 32 pg (27-31); Mean Corpuscular Volume 92 fL (80-94); Mean Platelet Volume 7.1 fL (7.4-10.4); Platelet Count 163 10^3/uL (150-450); Red Blood Count 3.69 10^6 /uL (4.18-5.48); Red Cell Distribution Width 13 % (10-15); White Blood Count 11.4 10^3/uL (3.5-10.8)
[2021-09-09 15:23] LABS: Activated Partial Thrombo Time 28.8 seconds (26.0-38.0); INR 1.06 (0.86-1.15)
[2021-09-09 15:24] LABS: Troponin I 0.02 ng/mL (<0.03)
[2021-09-09 15:44] LABS: Albumin 3.2 g/dL (3.2-5.2); Calcium 8.8 mg/dL (8.6-10.3); Potassium 4.6 mmol/L (3.5-5.0); Total Bilirubin 0.3 mg/dL (0.2-1.0)
[2021-09-09 15:50] LABS: Albumin/Globulin Ratio 1.1 (1-3); C Reactive Protein 9.93 mg/L (<8.01); Total Protein 6.2 g/dL (6.4-8.9); eGFR CKD-EPI 20.7 (>60)
[2021-09-09] MEDS ORDERED: Lactated Ringers 1000 ml BAG 1,000 ML IV ONE (17:38)
[2021-09-09 18:42] LABS: Urine Appearance Cloudy; Urine Bilirubin Negative (Negative); Urine Blood 1+ (Negative); Urine Color Yellow; Urine Glucose 2+(150 mg/dL) (Negative); Urine Ketones Negative (Negative); Urine Nitrite Negative (Negative); Urine Protein 3+(>=500 mg/dL) (Negative); Urine Specific Gravity 1.013 (1.002-1.030); Urine Urobilinogen Negative (Negative)
[2021-09-09 18:48] LABS: Urine Bacteria 1+ (Absent); Urine Red Blood Cell Trace(0-2/hpf) (Absent); Urine White Blood Cell Trace(0-5/hpf) (Absent); Urine Yeast Present (Absent)
[2021-09-09 20:43] LABS: Acetaminophen < 15 mcg/mL; Alcohol, S < 13 mg/dL (<13); Salicylate < 2.50 mg/dL (<30)
[2021-09-09] MEDS ORDERED: Polyethylene Glycol 3350 17 GM PACKET PO PRN (20:59)
[2021-09-09] MEDS ORDERED: Dextrose 50% Syringe 50 ml 25 GM/50 ML SYRINGE IV PUSH PRN (20:59)
[2021-09-09] MEDS ORDERED: Magnesium Hydroxide LIQ 30 ML UDC PO PRN (22:41)
[2021-09-09] MEDS ORDERED: Insulin GLARGINE 100 un/ml 10 ml VIAL SUBCUT SCH (23:00)
[2021-09-10] MEDS: Amoxicillin/Clavul 500/125 TAB (Augmentin 500 mg tab) PO SCH ×3 (00:09→20:27)
[2021-09-10] MEDS: Senna TAB 8.6 mg TAB PO SCH ×2 (00:10→20:27)
[2021-09-10] MEDS: ICOSAPENT ETHYL 1 GM CAPSULE (NF) PO SCH ×2 (00:11→11:15)
[2021-09-10] MEDS: Heparin 5000 UNITS/ML 1 mL VIAL SUBCUT SCH ×3 (00:18→20:36)
[2021-09-10] MEDS ORDERED: cloNIDine 0.3 MG PATCH 0.3 MG/24 HR 7 DAY PATCH TRANSDERM SCH (01:00)
[2021-09-10 06:08] LABS: ABS Monocytes 0.7 10^3/ul (0-0.8); ABS Neutrophils 5.8 10^3/ul (1.5-7.7); Eosinophil % 0.6 %; Hematocrit 28 % (42-52); Lymphocyte % 13.2 %; Mean Corpuscular HGB Conc 35 g/dL (31-36); Mean Corpuscular Hemoglobin 32 pg (27-31); Mean Corpuscular Volume 91 fL (80-94); Mean Platelet Volume 7.4 fL (7.4-10.4); Platelet Count 131 10^3/uL (150-450); Red Blood Count 3.13 10^6 /uL (4.18-5.48); Red Cell Distribution Width 13 % (10-15); White Blood Count 7.5 10^3/uL (3.5-10.8)
[2021-09-10 06:21] LABS: Calcium 8.1 mg/dL (8.6-10.3); Potassium 4.4 mmol/L (3.5-5.0)
[2021-09-10] MEDS ORDERED: NS 0.9% 1000 ml BAG 1,000 ML IV SCH (08:15)
[2021-09-10] MEDS ORDERED: NS 0.9% 500 ml BAG 500 ML IV ONE (09:22)
[2021-09-10 09:24] LABS: PCO2 Arterial 41 mmHg (35-45); PO2 Arterial 77 mmHg (80-100)
[2021-09-10] MEDS ORDERED: Valproic Acid IV 500 MG in NS 0.9% 100 ml BAG 100 ML IVPB ONE (10:00)
[2021-09-10] MEDS: Aspirin EC 81 mg TAB.EC (enteric coated) PO SCH (10:55)
[2021-09-10] MEDS: DULoxetine DR 60 mg CAP PO SCH (10:55)
[2021-09-10] MEDS ORDERED: Valproic Acid IV 750 MG in NS 0.9% 100 ml BAG 100 ML IVPB ONE (11:00)
[2021-09-10 17:08] LABS: Calcium 8.1 mg/dL (8.6-10.3); Potassium 4.6 mmol/L (3.5-5.0); eGFR CKD-EPI 15.9 (>60)
[2021-09-10] MEDS: Insulin GLARGINE 100 un/ml 10 ml VIAL SUBCUT SCH (20:36)
[2021-09-10] MEDS ORDERED: Valproic Acid IV 1,000 MG in NS 0.9% 100 ml BAG 100 ML IVPB SCH (21:00)
[2021-09-11 06:54] LABS: ABS Monocytes 0.9 10^3/ul (0-0.8); ABS Neutrophils 5.7 10^3/ul (1.5-7.7); Eosinophil % 0.5 %; Hematocrit 26 % (42-52); Hemoglobin 9.2 g/dL (14.0-18.0); Lymphocyte % 12.6 %; Mean Corpuscular HGB Conc 35 g/dL (31-36); Mean Corpuscular Hemoglobin 32 pg (27-31); Mean Corpuscular Volume 92 fL (80-94); Mean Platelet Volume 7.8 fL (7.4-10.4); Platelet Count 135 10^3/uL (150-450); Red Blood Count 2.88 10^6 /uL (4.18-5.48); Red Cell Distribution Width 13 % (10-15); White Blood Count 7.6 10^3/uL (3.5-10.8)
[2021-09-11 07:10] LABS: Potassium 4.3 mmol/L (3.5-5.0); eGFR CKD-EPI 14.1 (>60)
[2021-09-11 07:52] LABS: C Reactive Protein 12.35 mg/L (<8.01)
[2021-09-11] MEDS: DULoxetine DR 60 mg CAP PO SCH (09:22)
[2021-09-11] MEDS: Aspirin EC 81 mg TAB.EC (enteric coated) PO SCH (09:22)
[2021-09-11] MEDS: Heparin 5000 UNITS/ML 1 mL VIAL SUBCUT SCH ×2 (09:22→20:18)
[2021-09-11] MEDS: Amoxicillin/Clavul 500/125 TAB (Augmentin 500 mg tab) PO SCH (09:22)
[2021-09-11 12:09] LABS: Urine Creatinine Concentration 133.51 mg/dL; Urine Sodium Concentration < 18 mmol/L
[2021-09-11] MEDS ORDERED: NS 0.9% 1000 ml BAG 1,000 ML IV SCH (13:30)
[2021-09-11] MEDS ORDERED: Glycerin ADULT 2.4 gm SUPP PR ONE (15:07)
[2021-09-11] MEDS: Senna TAB 8.6 mg TAB PO SCH (20:17)
[2021-09-11] MEDS: Insulin GLARGINE 100 un/ml 10 ml VIAL SUBCUT SCH (20:19)
[2021-09-12 04:57] LABS: Hematocrit 25 % (42-52); Hemoglobin 8.9 g/dL (14.0-18.0); Mean Corpuscular HGB Conc 35 g/dL (31-36); Mean Corpuscular Hemoglobin 32 pg (27-31); Mean Corpuscular Volume 91 fL (80-94); Mean Platelet Volume 7.3 fL (7.4-10.4); Platelet Count 143 10^3/uL (150-450); Red Blood Count 2.78 10^6 /uL (4.18-5.48); Red Cell Distribution Width 13 % (10-15); White Blood Count 6.9 10^3/uL (3.5-10.8)
[2021-09-12 05:09] LABS: Albumin 2.8 g/dL (3.2-5.2); Albumin/Globulin Ratio 1.2 (1-3); Calcium 7.9 mg/dL (8.6-10.3); Globulin 2.4 g/dL (2-4); Potassium 3.7 mmol/L (3.5-5.0); Total Bilirubin 0.3 mg/dL (0.2-1.0); Total Protein 5.2 g/dL (6.4-8.9)
[2021-09-12 05:13] LABS: ABS Eosinophils 0.1 10^3/ul (0-0.6); ABS Lymphocytes 1.3 10^3/ul (1.0-4.8); ABS Monocytes 0.9 10^3/ul (0-0.8); ABS Neutrophils 4.6 10^3/ul (1.5-7.7); Eosinophil % 1.4 %; Lymphocyte % 18.5 %
[2021-09-12 05:19] LABS: Carcinoembryonic Antigen 3.5 ng/mL (0.1-5.0)
[2021-09-12] MEDS: DULoxetine DR 60 mg CAP PO SCH (08:17)
[2021-09-12] MEDS: Aspirin EC 81 mg TAB.EC (enteric coated) PO SCH (08:17)
[2021-09-12] MEDS: Heparin 5000 UNITS/ML 1 mL VIAL SUBCUT SCH ×2 (08:17→20:56)
[2021-09-12] MEDS: Senna TAB 8.6 mg TAB PO SCH (20:56)
[2021-09-12] MEDS: Insulin GLARGINE 100 un/ml 10 ml VIAL SUBCUT SCH (21:21)
[2021-09-13 07:42] LABS: Hematocrit 27 % (42-52); Hemoglobin 9.3 g/dL (14.0-18.0); Mean Corpuscular HGB Conc 35 g/dL (31-36); Mean Corpuscular Hemoglobin 32 pg (27-31); Mean Corpuscular Volume 92 fL (80-94); Mean Platelet Volume 7.2 fL (7.4-10.4); Platelet Count 156 10^3/uL (150-450); Red Cell Distribution Width 13 % (10-15); White Blood Count 6.5 10^3/uL (3.5-10.8)
[2021-09-13 07:58] LABS: Calcium 7.8 mg/dL (8.6-10.3); Potassium 3.6 mmol/L (3.5-5.0); eGFR CKD-EPI 22.2 (>60)
[2021-09-13 08:13] LABS: ABS Eosinophils 0.2 10^3/ul (0-0.6); ABS Lymphocytes 1.1 10^3/ul (1.0-4.8); ABS Neutrophils 4.2 10^3/ul (1.5-7.7); Eosinophil % 2.8 %; Lymphocyte % 17.6 %
[2021-09-13] MEDS ORDERED: Potassium Chlor 20 meq TAB.ER PO ONE (08:44)
[2021-09-13] MEDS: DULoxetine DR 60 mg CAP PO SCH (09:50)
[2021-09-13] MEDS: Aspirin EC 81 mg TAB.EC (enteric coated) PO SCH (09:50)
[2021-09-13] MEDS: Heparin 5000 UNITS/ML 1 mL VIAL SUBCUT SCH ×2 (09:51→20:13)
[2021-09-13] MEDS: Senna TAB 8.6 mg TAB PO SCH (20:13)
[2021-09-13] MEDS: Insulin GLARGINE 100 un/ml 10 ml VIAL SUBCUT SCH (20:35)
[2021-09-14] MEDS: Heparin 5000 UNITS/ML 1 mL VIAL SUBCUT SCH ×2 (10:31→20:53)
[2021-09-14] MEDS: DULoxetine DR 60 mg CAP PO SCH (10:32)
[2021-09-14] MEDS: Aspirin EC 81 mg TAB.EC (enteric coated) PO SCH (10:33)
[2021-09-14] MEDS ORDERED: Dextrose 50% Syringe 50 ml 25 GM/50 ML SYRINGE IV PUSH PRN (15:31)
[2021-09-14] MEDS: Insulin GLARGINE 100 un/ml 10 ml VIAL SUBCUT SCH (21:16)
[2021-09-14] MEDS: Senna TAB 8.6 mg TAB PO SCH (21:16)
[2021-09-15 06:26] LABS: Hematocrit 25 % (42-52); Hemoglobin 8.9 g/dL (14.0-18.0); Mean Corpuscular HGB Conc 35 g/dL (31-36); Mean Corpuscular Hemoglobin 32 pg (27-31); Mean Corpuscular Volume 91 fL (80-94); Mean Platelet Volume 6.8 fL (7.4-10.4); Platelet Count 181 10^3/uL (150-450); Red Blood Count 2.78 10^6 /uL (4.18-5.48); Red Cell Distribution Width 12 % (10-15); White Blood Count 8.4 10^3/uL (3.5-10.8)
[2021-09-15 06:45] LABS: Calcium 7.6 mg/dL (8.6-10.3); Potassium 3.5 mmol/L (3.5-5.0)
[2021-09-15] MEDS: DULoxetine DR 60 mg CAP PO SCH (09:55)
[2021-09-15] MEDS: Aspirin EC 81 mg TAB.EC (enteric coated) PO SCH (09:56)
[2021-09-15] MEDS: Heparin 5000 UNITS/ML 1 mL VIAL SUBCUT SCH ×2 (09:56→22:22)
[2021-09-15 14:25] LABS: PCO2 Arterial 47 mmHg (35-45); PO2 Arterial 93 mmHg (80-100)
[2021-09-15] MEDS: Insulin GLARGINE 100 un/ml 10 ml VIAL SUBCUT SCH (22:21)
[2021-09-15] MEDS: Senna TAB 8.6 mg TAB PO SCH (22:26)
[2021-09-16 05:39] LABS: Hematocrit 26 % (42-52); Hemoglobin 9.2 g/dL (14.0-18.0); Mean Corpuscular HGB Conc 35 g/dL (31-36); Mean Corpuscular Hemoglobin 32 pg (27-31); Mean Corpuscular Volume 91 fL (80-94); Mean Platelet Volume 6.5 fL (7.4-10.4); Platelet Count 209 10^3/uL (150-450); Red Blood Count 2.89 10^6 /uL (4.18-5.48); Red Cell Distribution Width 13 % (10-15); White Blood Count 7.5 10^3/uL (3.5-10.8)
[2021-09-16 05:54] LABS: Calcium 7.9 mg/dL (8.6-10.3); Magnesium 2.3 mg/dL (1.9-2.7); Potassium 3.6 mmol/L (3.5-5.0); eGFR CKD-EPI 31.7 (>60)
[2021-09-16 06:08] LABS: Polychromasia 1+
[2021-09-16 06:10] LABS: ABS Eosinophils 0.4 10^3/ul (0-0.6); ABS Lymphocytes 2.2 10^3/ul (1.0-4.8); ABS Neutrophils 3.9 10^3/ul (1.5-7.7); Eosinophil % 5.6 %
[2021-09-16] MEDS: Aspirin EC 81 mg TAB.EC (enteric coated) PO SCH (10:39)
[2021-09-16] MEDS: Heparin 5000 UNITS/ML 1 mL VIAL SUBCUT SCH ×2 (12:08→20:19)
[2021-09-16] MEDS ORDERED: Gadoteridol (CONTRAST) 279.3 MG/ML 10 ML IV ONE (15:01)
[2021-09-16] MEDS: Insulin GLARGINE 100 un/ml 10 ml VIAL SUBCUT SCH (20:19)
[2021-09-16] MEDS: Senna TAB 8.6 mg TAB PO SCH (20:20)
[2021-09-17 06:02] LABS: Hematocrit 26 % (42-52); Hemoglobin 8.9 g/dL (14.0-18.0); Mean Corpuscular HGB Conc 35 g/dL (31-36); Mean Corpuscular Hemoglobin 32 pg (27-31); Mean Corpuscular Volume 92 fL (80-94); Mean Platelet Volume 6.2 fL (7.4-10.4); Platelet Count 203 10^3/uL (150-450); Red Cell Distribution Width 13 % (10-15); White Blood Count 6.9 10^3/uL (3.5-10.8)
[2021-09-17 06:15] LABS: Calcium 7.9 mg/dL (8.6-10.3); Magnesium 2.2 mg/dL (1.9-2.7); Potassium 3.8 mmol/L (3.5-5.0); eGFR CKD-EPI 32.5 (>60)
[2021-09-17 06:18] LABS: ABS Eosinophils 0.4 10^3/ul (0-0.6); ABS Monocytes 0.9 10^3/ul (0-0.8); ABS Neutrophils 3.6 10^3/ul (1.5-7.7); Eosinophil % 5.5 %; Lymphocyte % 28.4 %
[2021-09-17] MEDS: Heparin 5000 UNITS/ML 1 mL VIAL SUBCUT SCH ×2 (09:35→20:49)
[2021-09-17] MEDS: Aspirin EC 81 mg TAB.EC (enteric coated) PO SCH (09:40)
[2021-09-17 13:22] LABS: TSH Ultra Thyroid Stim Horm 6.18 mcIU/mL (0.34-5.60)
[2021-09-17 13:33] LABS: Folate 9.12 ng/mL (5.90-24.80)
[2021-09-17] MEDS ORDERED: NS 0.9% 500 ml BAG 500 ML IV ONE (16:39)
[2021-09-17] MEDS ORDERED: NS 0.9% 1000 ml BAG 1,000 ML IV SCH (17:00)
[2021-09-17 17:35] LABS: T4, Total 11.64 mcg/dL (6.09-12.23)
[2021-09-17] MEDS: Insulin GLARGINE 100 un/ml 10 ml VIAL SUBCUT SCH (20:50)
[2021-09-17] MEDS: Senna TAB 8.6 mg TAB PO SCH (20:50)
[2021-09-18 06:17] LABS: Hematocrit 26 % (42-52); Hemoglobin 8.9 g/dL (14.0-18.0); Mean Corpuscular HGB Conc 35 g/dL (31-36); Mean Corpuscular Hemoglobin 32 pg (27-31); Mean Corpuscular Volume 92 fL (80-94); Mean Platelet Volume 6.3 fL (7.4-10.4); Platelet Count 195 10^3/uL (150-450); Red Blood Count 2.81 10^6 /uL (4.18-5.48); Red Cell Distribution Width 13 % (10-15); White Blood Count 8.9 10^3/uL (3.5-10.8)
[2021-09-18 06:36] LABS: ABS Basophils 0.1 10^3/ul (0-0.2); ABS Eosinophils 0.4 10^3/ul (0-0.6); ABS Lymphocytes 2.5 10^3/ul (1.0-4.8); ABS Monocytes 1.2 10^3/ul (0-0.8); ABS Neutrophils 4.6 10^3/ul (1.5-7.7); Eosinophil % 4.6 %; Lymphocyte % 28.5 %
[2021-09-18 06:38] LABS: Calcium 7.8 mg/dL (8.6-10.3); Magnesium 1.9 mg/dL (1.9-2.7); Potassium 3.8 mmol/L (3.5-5.0); eGFR CKD-EPI 34.4 (>60)
[2021-09-18] MEDS: Aspirin EC 81 mg TAB.EC (enteric coated) PO SCH (08:45)
[2021-09-18] MEDS: Heparin 5000 UNITS/ML 1 mL VIAL SUBCUT SCH ×2 (08:50→20:50)
[2021-09-18] MEDS ORDERED: cloNIDine 0.3 MG PATCH 0.3 MG/24 HR 7 DAY PATCH TRANSDERM SCH (11:00)
[2021-09-18] MEDS: Senna TAB 8.6 mg TAB PO SCH (20:50)
[2021-09-18] MEDS: Insulin GLARGINE 100 un/ml 10 ml VIAL SUBCUT SCH (20:51)
[2021-09-19 05:29] LABS: ABS Eosinophils 0.3 10^3/ul (0-0.6); ABS Lymphocytes 2.2 10^3/ul (1.0-4.8); ABS Neutrophils 3.7 10^3/ul (1.5-7.7); Eosinophil % 4.7 %; Hematocrit 23 % (42-52); Hemoglobin 8.2 g/dL (14.0-18.0); Lymphocyte % 30.3 %; Mean Corpuscular HGB Conc 35 g/dL (31-36); Mean Corpuscular Hemoglobin 32 pg (27-31); Mean Corpuscular Volume 91 fL (80-94); Mean Platelet Volume 6.2 fL (7.4-10.4); Platelet Count 173 10^3/uL (150-450); Red Blood Count 2.56 10^6 /uL (4.18-5.48); Red Cell Distribution Width 13 % (10-15); White Blood Count 7.3 10^3/uL (3.5-10.8)
[2021-09-19 05:44] LABS: Calcium 7.7 mg/dL (8.6-10.3); Potassium 3.7 mmol/L (3.5-5.0); eGFR CKD-EPI 38.2 (>60)
[2021-09-19 07:51] LABS: Magnesium 1.7 mg/dL (1.9-2.7)
[2021-09-19] MEDS ORDERED: Magnesium Sulfate IV 3 GM in NS 0.9% 100 ml BAG 100 ML IVPB ONE (08:07)
[2021-09-19] MEDS ORDERED: Magnesium Sulfate 2 GM IV (Premix) IVPB ONE (09:00)
[2021-09-19] MEDS: DULoxetine DR 30 mg CAP PO SCH (09:45)
[2021-09-19] MEDS: Heparin 5000 UNITS/ML 1 mL VIAL SUBCUT SCH ×2 (09:46→21:58)
[2021-09-19] MEDS: Aspirin EC 81 mg TAB.EC (enteric coated) PO SCH (09:46)
[2021-09-19] MEDS ORDERED: Magnesium Sulfate 1 GM IV 1 GM/100 ML BAG IV ONE (10:00)
[2021-09-19 13:17] LABS: Phosphorus 2.3 mg/dL (2.5-5.0)
[2021-09-19] MEDS: Senna TAB 8.6 mg TAB PO SCH (21:58)
[2021-09-19] MEDS: Insulin GLARGINE 100 un/ml 10 ml VIAL SUBCUT SCH (21:59)
[2021-09-19] MEDS: PTO: ICOSAPENT ETHYL 1 GM CAPSULE (NF) PO SCH (22:16)
[2021-09-20 06:58] LABS: ABS Eosinophils 0.4 10^3/ul (0-0.6); ABS Lymphocytes 1.7 10^3/ul (1.0-4.8); ABS Monocytes 0.7 10^3/ul (0-0.8); ABS Neutrophils 3.3 10^3/ul (1.5-7.7); Eosinophil % 5.9 %; Hematocrit 28 % (42-52); Hemoglobin 9.7 g/dL (14.0-18.0); Lymphocyte % 27.7 %; Mean Corpuscular HGB Conc 35 g/dL (31-36); Mean Corpuscular Hemoglobin 32 pg (27-31); Mean Corpuscular Volume 92 fL (80-94); Mean Platelet Volume 6.3 fL (7.4-10.4); Platelet Count 187 10^3/uL (150-450); Red Blood Count 3.04 10^6 /uL (4.18-5.48); Red Cell Distribution Width 13 % (10-15); White Blood Count 6.2 10^3/uL (3.5-10.8)
[2021-09-20 07:18] LABS: Albumin 2.7 g/dL (3.2-5.2); Albumin/Globulin Ratio 1.1 (1-3); Calcium 8.3 mg/dL (8.6-10.3); Globulin 2.5 g/dL (2-4); Phosphorus 3.6 mg/dL (2.5-5.0); Potassium 3.9 mmol/L (3.5-5.0); Total Bilirubin 0.3 mg/dL (0.2-1.0); Total Protein 5.2 g/dL (6.4-8.9); eGFR CKD-EPI 40.3 (>60)
[2021-09-20] MEDS: PTO: ICOSAPENT ETHYL 1 GM CAPSULE (NF) PO SCH ×2 (10:12→22:50)
[2021-09-20] MEDS: DULoxetine DR 30 mg CAP PO SCH (10:13)
[2021-09-20] MEDS: Aspirin EC 81 mg TAB.EC (enteric coated) PO SCH (10:13)
[2021-09-20] MEDS: Heparin 5000 UNITS/ML 1 mL VIAL SUBCUT SCH (10:14)
[2021-09-20] MEDS ORDERED: Dextrose 50% Syringe 50 ml 25 GM/50 ML SYRINGE IV PUSH PRN ×2 (10:58→10:59)
[2021-09-20] MEDS: Enoxaparin 40 MG/0.4 ML SYR SUBCUT SCH (17:19)
[2021-09-20] MEDS: Insulin GLARGINE 100 un/ml 10 ml VIAL SUBCUT SCH (22:51)
[2021-09-20] MEDS: Senna TAB 8.6 mg TAB PO SCH (22:53)
[2021-09-21 07:08] LABS: Calcium 7.9 mg/dL (8.6-10.3); Potassium 3.8 mmol/L (3.5-5.0); eGFR CKD-EPI 36.6 (>60)
[2021-09-21] MEDS: PTO: ICOSAPENT ETHYL 1 GM CAPSULE (NF) PO SCH ×2 (09:15→22:15)
[2021-09-21] MEDS: DULoxetine DR 30 mg CAP PO SCH (09:15)
[2021-09-21] MEDS: Aspirin EC 81 mg TAB.EC (enteric coated) PO SCH (09:46)
[2021-09-21] MEDS: Enoxaparin 40 MG/0.4 ML SYR SUBCUT SCH (16:57)
[2021-09-21] MEDS: Senna TAB 8.6 mg TAB PO SCH (22:14)
[2021-09-21] MEDS: Insulin GLARGINE 100 un/ml 10 ml VIAL SUBCUT SCH (22:14)
[2021-09-22 06:14] LABS: Calcium 8.1 mg/dL (8.6-10.3); Magnesium 1.7 mg/dL (1.9-2.7); Potassium 4.1 mmol/L (3.5-5.0); eGFR CKD-EPI 29.6 (>60)
[2021-09-22] MEDS ORDERED: Magnesium Sulfate 2 gm BAG 2 GM/50 ML BAG IVPB ONE (07:02)
[2021-09-22] MEDS: PTO: ICOSAPENT ETHYL 1 GM CAPSULE (NF) PO SCH ×2 (09:42→22:57)
[2021-09-22] MEDS: DULoxetine DR 30 mg CAP PO SCH (09:45)
[2021-09-22] MEDS: Aspirin EC 81 mg TAB.EC (enteric coated) PO SCH (09:46)
[2021-09-22] MEDS: Enoxaparin 40 MG/0.4 ML SYR SUBCUT SCH (17:41)
[2021-09-22] MEDS: Senna TAB 8.6 mg TAB PO SCH (22:56)
[2021-09-22] MEDS: Insulin GLARGINE 100 un/ml 10 ml VIAL SUBCUT SCH (22:59)
[2021-09-23 05:27] LABS: ABS Eosinophils 0.3 10^3/ul (0-0.6); ABS Lymphocytes 1.5 10^3/ul (1.0-4.8); ABS Monocytes 0.8 10^3/ul (0-0.8); ABS Neutrophils 3.4 10^3/ul (1.5-7.7); Eosinophil % 5.3 %; Hematocrit 26 % (42-52); Hemoglobin 8.8 g/dL (14.0-18.0); Lymphocyte % 25.2 %; Mean Corpuscular HGB Conc 34 g/dL (31-36); Mean Corpuscular Hemoglobin 32 pg (27-31); Mean Corpuscular Volume 92 fL (80-94); Mean Platelet Volume 6.6 fL (7.4-10.4); Nucleated Red Blood Cells % 0.1; Platelet Count 169 10^3/uL (150-450); Red Blood Count 2.79 10^6 /uL (4.18-5.48); Red Cell Distribution Width 13 % (10-15); White Blood Count 6.1 10^3/uL (3.5-10.8)
[2021-09-23 05:50] LABS: Calcium 8.1 mg/dL (8.6-10.3); Magnesium 2.1 mg/dL (1.9-2.7); Potassium 4.1 mmol/L (3.5-5.0)
[2021-09-23 05:55] LABS: eGFR CKD-EPI 32.3 (>60)
[2021-09-23] MEDS: DULoxetine DR 30 mg CAP PO SCH (08:35)
[2021-09-23] MEDS: Aspirin EC 81 mg TAB.EC (enteric coated) PO SCH (08:36)
[2021-09-23] MEDS: PTO: ICOSAPENT ETHYL 1 GM CAPSULE (NF) PO SCH ×2 (08:39→20:55)
[2021-09-23] MEDS: Enoxaparin 40 MG/0.4 ML SYR SUBCUT SCH (17:38)
[2021-09-23] MEDS: Insulin GLARGINE 100 un/ml 10 ml VIAL SUBCUT SCH (20:55)
[2021-09-23] MEDS: Senna TAB 8.6 mg TAB PO SCH (20:56)
[2021-09-24 05:56] LABS: Calcium 8.1 mg/dL (8.6-10.3); Magnesium 1.9 mg/dL (1.9-2.7); Potassium 4.5 mmol/L (3.5-5.0)
[2021-09-24 06:01] LABS: eGFR CKD-EPI 32.6 (>60)
[2021-09-24] MEDS: Aspirin EC 81 mg TAB.EC (enteric coated) PO SCH (08:29)
[2021-09-24] MEDS: DULoxetine DR 30 mg CAP PO SCH (08:29)
[2021-09-24] MEDS: PTO: ICOSAPENT ETHYL 1 GM CAPSULE (NF) PO SCH (08:30)
[2021-09-24 10:45] VITALS: BP 135/59
[2021-09-24] MEDS: Enoxaparin 40 MG/0.4 ML SYR SUBCUT SCH (17:44)
== END 2021-09-24 18:00 | disposition home health service (06) | DRG 689 ==
LOC: ED 13:52 → EDHOLD 20:08 → SUATTDRO 20:08 → EDHOLD 23:13 → MED 09-10 00:01
PROVIDERS: ADMIT Internal Medicine; ATTEND Internal Medicine

== ENCOUNTER 2024-05-12 17:30 | Inpatient (IN) ==
[2024-05-12 18:01] LABS: ABS Basophils 0.1 10^3/uL (0.0-0.1); ABS Lymphocytes 0.6 10^3/uL (1.0-4.8); ABS Monocytes 0.4 10^3/uL (0.0-1.1); ABS Neutrophils 13.2 10^3/uL (1.5-7.6); Eosinophil % 0.1 %; Hematocrit 33.4 % (38-53); Hemoglobin 11.2 g/dL (13.2-16.3); Lymphocyte % 4.3 %; Mean Corpuscular Hgb Conc 33.6 g/dL (31-36); Mean Corpuscular Volume 86.3 fL (80-97); Mean Platelet Volume 6.9 fL (7.5-11.2); Platelet Count 295 10^3/uL (150-450); Red Blood Count 3.87 10^6/uL (4.06-5.63); Red Cell Distribution Width 13.5 % (12-17); White Blood Count 14.3 10^3/uL (3.6-10.2)
[2024-05-12 18:30] LABS: High Sens Troponin Baseline 8 pg/mL (<20)
[2024-05-12 18:55] LABS: Urine Appearance Clear; Urine Bacteria 1+ /HPF (Absent); Urine Bilirubin Negative (Negative); Urine Blood 2+ (Negative); Urine Color Light-Yellow; Urine Glucose 4+ (>=1000 mg/dL) (Negative); Urine Ketones Trace (Negative); Urine Nitrite Negative (Negative); Urine Protein 3+ (>=300 mg/dL) (Negative); Urine Red Blood Cell 1+(3-5/hpf) /HPF (0-Trace); Urine Squamous Epithelial Cell Present /HPF (Absent); Urine Urobilinogen Negative (Negative); Urine White Blood Cell Trace(0-5/hpf) /HPF (0-Trace); Urine pH 6.5 (5.0-8.0)
[2024-05-12 18:58] LABS: Urine Benzodiazepine Screen None Detected (None Detect); Urine Cannabinoids Screen None Detected (None Detect); Urine Opiates Screen None Detected (None Detect)
[2024-05-12 18:58] LABS: ALT 12 U/L (7-52); AST 14 U/L (13-39); Albumin/Globulin Ratio 1.4 (1-3); Alcohol, S < 13 mg/dL (<13); Alkaline Phosphatase 54 U/L (35-149); Anion Gap 11 mmol/L (2-16); Blood Urea Nitrogen 48 mg/dL (6-24); CO2 Carbon Dioxide 21 mmol/L (22-32); Chloride 101 mmol/L (101-111); Creatinine, Serum 4.19 mg/dL (0.67-1.17); Globulin 2.2 g/dL (2-4); Glucose 239 mg/dL (70-100); Lipase 10 U/L (11.0-82.0); Magnesium 1.5 mg/dL (1.9-2.7); Potassium 5.2 mmol/L (3.5-5.0); Sodium 133 mmol/L (135-145); Total Bilirubin 0.3 mg/dL (0.2-1.0); Total Protein 5.2 g/dL (6.4-8.9); eGFR CKD-EPI 14.1 (>60)
[2024-05-12 19:05] LABS: TSH Ultra Thyroid Stim Horm 3.36 mcIU/mL (0.34-5.60)
[2024-05-12 19:25] LABS: High Sensitivity Troponin 1 Hr 10 pg/mL (<20)
[2024-05-12 20:01] LABS: Venous Bicarbonate HCO3 19.2 mmol/L (24-28)
[2024-05-12] MEDS: Magnesium Sulfate 2 gm BAG 2 GM/50 ML BAG IVPB ONE (20:31)
[2024-05-12] MEDS: NS 0.9% 1000 ml BAG 1,000 ML IV ONE (20:43)
[2024-05-12] MEDS ORDERED: Zosyn per Pharmacy NOTE FOLLOW UP SCH ×2 (21:00→23:00)
[2024-05-12] MEDS: Acetaminophen IV 1 GM/100ML 1,000 MG/100 ML BAG IV ONE (21:38)
[2024-05-12] MEDS ORDERED: Ondansetron 4 mg VIAL 2 MG/ML 2 ml VIAL IV PRN (22:27)
[2024-05-12] MEDS: ZOSYN 3.375 GM x ONE DOSE over 30 miuntes IV (22:51)
[2024-05-12] MEDS ORDERED: Dextrose 50% Syringe 50 ml 25 GM/50 ML SYRINGE IV PUSH PRN (22:54)
[2024-05-13] MEDS: Piperacillin/Tazobac 3.375 BAG 3.375 GM/100 ML BAG IV ONE (02:44)
[2024-05-13] MEDS: ZOSYN 3.375 GM Q12H per EXTENDED INFUSION IV SCH (04:26)
[2024-05-13 07:07] LABS: ABS Lymphocytes 0.5 10^3/uL (1.0-4.8); ABS Neutrophils 14.1 10^3/uL (1.5-7.6); ABS Nucleated RBC 0.01 10^3/ul; Hematocrit 35.7 % (38-53); Hemoglobin 11.6 g/dL (13.2-16.3); Lymphocyte % 3.4 %; Mean Corpuscular Hemoglobin 29.5 pg (27-33); Mean Corpuscular Hgb Conc 32.6 g/dL (31-36); Mean Corpuscular Volume 90.4 fL (80-97); Mean Platelet Volume 6.9 fL (7.5-11.2); Nucleated Red Blood Cells % 0.1 %/100WBC (0.0-0.8); Platelet Count 231 10^3/uL (150-450); Red Blood Count 3.95 10^6/uL (4.06-5.63); Red Cell Distribution Width 14.1 % (12-17); White Blood Count 15.7 10^3/uL (3.6-10.2)
[2024-05-13 08:13] LABS: Albumin 2.8 g/dL (3.2-5.2); Albumin/Globulin Ratio 1.3 (1-3); Calcium 8.1 mg/dL (8.6-10.3); Creatinine, Serum 4.87 mg/dL (0.67-1.17); Globulin 2.2 g/dL (2-4); Total Bilirubin 0.4 mg/dL (0.2-1.0); eGFR CKD-EPI 11.7 (>60)
[2024-05-13] MEDS: Aspirin EC 81 mg TAB.EC (enteric coated) PO SCH (09:01)
[2024-05-13] MEDS: DULoxetine DR 60 mg CAP PO SCH (09:01)
[2024-05-13] MEDS: Insulin GLARGINE 100 un/ml 10 ml VIAL SUBCUT SCH (09:07)
[2024-05-13] MEDS: SODIUM ZIRCONIUM CYCLOSILICATE 10 GM PACKET PO SCH (09:24)
[2024-05-13] MEDS: Heparin 5000 UNITS/ML 1 mL VIAL SUBCUT SCH (14:18)
[2024-05-13] MEDS: hydrALAZINE 20 mg/ml 1 ML Vial IV IV SLOW PU PRN (16:27)
[2024-05-14] MEDS: Metoprolol Tartrate 5 mg VIAL 5 ml VIAL (1 mg/ml) IV SCH (23:57)
[2024-05-15 07:21] LABS: Albumin 2.7 g/dL (3.2-5.2); Albumin/Globulin Ratio 1.3 (1-3); Creatinine, Serum 7.01 mg/dL (0.67-1.17); Globulin 2.1 g/dL (2-4); Potassium 4.8 mmol/L (3.5-5.0); Total Bilirubin 0.3 mg/dL (0.2-1.0); Total Protein 4.8 g/dL (6.4-8.9); eGFR CKD-EPI 7.6 (>60)
[2024-05-15] MEDS: NS 0.9% 1000 ml BAG 1,000 ML IV SCH (15:47)
[2024-05-15] MEDS: Insulin GLARGINE 100 un/ml 10 ml VIAL SUBCUT ONE (16:32)
[2024-05-15] MEDS: cefTRIAXone 1 gm/50 mL D5W 1 GM/50 ML BAG IV SCH (17:14)
[2024-05-16 05:43] LABS: ABS Eosinophils 0.3 10^3/uL (0.0-0.5); ABS Lymphocytes 0.8 10^3/uL (1.0-4.8); ABS Monocytes 0.8 10^3/uL (0.0-1.1); Eosinophil % 2.7 %; Hemoglobin 9.3 g/dL (13.2-16.3); Lymphocyte % 7.9 %; Mean Corpuscular Hemoglobin 29.4 pg (27-33); Mean Corpuscular Hgb Conc 34.3 g/dL (31-36); Mean Corpuscular Volume 85.7 fL (80-97); Mean Platelet Volume 7.2 fL (7.5-11.2); Platelet Count 230 10^3/uL (150-450); Red Blood Count 3.15 10^6/uL (4.06-5.63); Red Cell Distribution Width 13.5 % (12-17); White Blood Count 9.9 10^3/uL (3.6-10.2)
[2024-05-16 06:00] LABS: Calcium 7.2 mg/dL (8.6-10.3); Creatinine, Serum 6.85 mg/dL (0.67-1.17); eGFR CKD-EPI 7.8 (>60)
[2024-05-16] MEDS ORDERED: hydrALAZINE 20 mg/ml 1 ML Vial IV IV SLOW PU PRN (15:35)
[2024-05-16] MEDS: NS 0.9% 1000 ml BAG 1,000 ML IV SCH (19:08)
[2024-05-16] MEDS: Insulin GLARGINE 100 un/ml 10 ml VIAL SUBCUT SCH (21:03)
[2024-05-17 06:17] LABS: ABS Basophils 0.1 10^3/uL (0.0-0.1); ABS Eosinophils 0.5 10^3/uL (0.0-0.5); ABS Lymphocytes 0.9 10^3/uL (1.0-4.8); ABS Monocytes 0.8 10^3/uL (0.0-1.1); ABS Neutrophils 7.5 10^3/uL (1.5-7.6); Eosinophil % 4.7 %; Hematocrit 25.8 % (38-53); Hemoglobin 8.8 g/dL (13.2-16.3); Lymphocyte % 8.9 %; Mean Corpuscular Hemoglobin 29.5 pg (27-33); Mean Corpuscular Hgb Conc 34.2 g/dL (31-36); Mean Corpuscular Volume 86.3 fL (80-97); Mean Platelet Volume 7.2 fL (7.5-11.2); Platelet Count 225 10^3/uL (150-450); Red Blood Count 2.99 10^6/uL (4.06-5.63); Red Cell Distribution Width 13.4 % (12-17); White Blood Count 9.6 10^3/uL (3.6-10.2)
[2024-05-17 07:01] LABS: Calcium 7.4 mg/dL (8.6-10.3); Creatinine, Serum 6.17 mg/dL (0.67-1.17); Potassium 4.3 mmol/L (3.5-5.0); eGFR CKD-EPI 8.8 (>60)
[2024-05-17] MEDS: Polyethylene Glycol 3350 17 GM PACKET PO SCH (17:38)
[2024-05-18 07:10] LABS: ABS Basophils 0.1 10^3/uL (0.0-0.1); ABS Eosinophils 0.6 10^3/uL (0.0-0.5); ABS Monocytes 0.7 10^3/uL (0.0-1.1); ABS Neutrophils 8.5 10^3/uL (1.5-7.6); Eosinophil % 5.1 %; Hematocrit 25.2 % (38-53); Hemoglobin 8.7 g/dL (13.2-16.3); Lymphocyte % 9.1 %; Mean Corpuscular Hemoglobin 29.7 pg (27-33); Mean Corpuscular Hgb Conc 34.6 g/dL (31-36); Mean Corpuscular Volume 85.7 fL (80-97); Mean Platelet Volume 7.5 fL (7.5-11.2); Platelet Count 245 10^3/uL (150-450); Red Blood Count 2.94 10^6/uL (4.06-5.63); Red Cell Distribution Width 13.4 % (12-17); White Blood Count 10.9 10^3/uL (3.6-10.2)
[2024-05-18 07:35] LABS: Calcium 7.5 mg/dL (8.6-10.3); Creatinine, Serum 6.54 mg/dL (0.67-1.17); Potassium 4.1 mmol/L (3.5-5.0); eGFR CKD-EPI 8.2 (>60)
[2024-05-18] MEDS: NS 0.9% 1000 ml BAG 1,000 ML IV SCH (16:45)
[2024-05-19 06:07] LABS: ABS Basophils 0.1 10^3/uL (0.0-0.1); ABS Eosinophils 0.5 10^3/uL (0.0-0.5); ABS Monocytes 0.6 10^3/uL (0.0-1.1); ABS Neutrophils 8.2 10^3/uL (1.5-7.6); ABS Nucleated RBC 0.01 10^3/ul; Eosinophil % 4.9 %; Hematocrit 26.9 % (38-53); Hemoglobin 9.1 g/dL (13.2-16.3); Lymphocyte % 9.3 %; Mean Corpuscular Hgb Conc 33.8 g/dL (31-36); Mean Corpuscular Volume 85.9 fL (80-97); Platelet Count 274 10^3/uL (150-450); Red Blood Count 3.13 10^6/uL (4.06-5.63); Red Cell Distribution Width 13.4 % (12-17); White Blood Count 10.3 10^3/uL (3.6-10.2)
[2024-05-19 06:22] LABS: Calcium 7.5 mg/dL (8.6-10.3); Creatinine, Serum 6.04 mg/dL (0.67-1.17); Potassium 4.5 mmol/L (3.5-5.0); eGFR CKD-EPI 9.1 (>60)
[2024-05-19 09:41] VITALS: BP 138/64
== END 2024-05-19 17:10 | disposition home or self-care (01) | DRG 871 ==
LOC: ED 17:30 → SUATTDRO 22:21 → EDHOLD 22:21 → MED 05-13 02:12
PROVIDERS: ADMIT Internal Medicine; ATTEND Internal Medicine